=== PATIENT | male | born 1990 ===

== ENCOUNTER 2021-03-25 23:38 | Emergency (ER) | payer OTHER ==
[~2021-03-25] VITALS: Ht 177.8 cm; Wt 68.2 kg
[2021-03-26 00:27] VITALS: BP 142/82; Ht 177.8 cm; Wt 68.2 kg
== END 2021-03-26 01:15 | disposition home or self-care (01) ==
LOC: D.ER 23:38
DX: M79.671 Pain in right foot (principal); M79.672 Pain in left foot; F15.10 Other stimulant abuse, uncomplicated; M79.10 Myalgia, unspecified site